=== PATIENT | male | born 1970 | race Caucasian/White ===

== ENCOUNTER 2017-04-13 16:40 | Emergency (ER) | payer BC, SELFPAY ==
[2017-04-13] VITALS (10 sets, daily range): BP systolic 121–160; BP diastolic 75–110; PULSE 85–149; RESP 15–28; TEMP 36.1–36.3; O2SAT 94–99; BMI 43.9
--- NOTE | 2017-04-13 16:55 | EKG12_ITS ---
Test Reason : PALPS Blood Pressure : / mmHG Vent. Rate : 166 BPM Atrial Rate : 174 BPM P-R Int : 000 ms QRS Dur : 086 ms QT Int : 262 ms P-R-T Axes : 000 015 014 degrees QTc Int : 435 ms Atrial fibrillation Abnormal ECG Confirmed by AIDEE ESPINOSA ([id number]), acquisition editor DEBRA ARGUELLO ([id number] on 04/18/2017 1:42:15 PM Referred By: VIPUL Confirmed By:AIDEE ESPINOSA
--- NOTE | 2017-04-13 17:00 | RAD_ITS ---
STUDY: X-RAY CHEST REASON FOR EXAM: Male, 47 years old. Chest pain. TECHNIQUE: Single AP portable upright view of the chest. COMPARISON: Prior comparison studies are not available for review at this time. FINDINGS: The lungs are clear and expanded. There is no demonstrated pleural abnormality. Normal size heart. Normal mediastinum and andrew. Normal visualized pulmonary arteries. Normal visualized aortic arch and descending thoracic aorta. There are multilevel degenerative changes of the visualized lower thoracic spine. Normal visualized ribs, clavicles, and shoulders. There is no demonstrated abnormality of the visualized soft tissue structures of the upper abdomen. RAD/Chest 1 View (Portable) IMPRESSION: No acute cardiopulmonary disease. Electronically Signed: Jake Rocha MD at 17:14 EST , Service support ,
--- NOTE | 2017-04-13 17:08 | ED.DCSUM_ITS ---
- ER Visit Summary Date of Service: 04/13/17 Chief Complaint: Shortness of breath History of Present Illness: The patient is a [address] Fraga. He reports that 2 days ago he had the onset of shortness of breath while changing a tire. Reports that it comes and goes. It is much worse with exertion. He denies any chest pain or palpitations. He went to his primary care physician and in the office was found to be in atrial fibrillation with RVR. He denies having had this previously. He is on Coumadin for a PE that was diagnosed in 2010. His review of systems is otherwise negative. Physical Examination: Vitals: Stable. Afebrile. General: Well-nourished and well-developed. Head: Normocephalic atraumatic. Neck: Supple, no lymphadenopathy. No JVD. Nontender. Cardiovascular: Tachycardic irregular rhythm. No murmurs. Respiratory: No respiratory distress. Clear to auscultation bilaterally. Abdominal: Soft, nontender, nondistended, normal bowel sounds. No guarding, rebound, or peritoneal signs. Back: Nontender. Extremities: Nontender, no edema. Skin: Normal color, no rash. Neurologic: Alert and oriented ?3. Cranial nerves II through XII are intact. Normal strength and sensation. Psych: Normal affect. Test Results: EKG is atrial fibrillation at [address] changes. There is no old EKG for comparison. CBC is remarkable for a white count of 12.7. Chem-7 is marked for glucose of 216. INR is 2.0. TSH is 2.87. Troponin is less than 0.02. Chest x-ray shows no acute disease and a poor inspiration. Emergency Department Course and Treatment: Patient had an IV placed. He was given Cardizem IV and aspirin p.o. his heart rate came down to the 90s to low 100s. I reviewed his INR since December 222016 and they have all been therapeutic. I had a prolonged discussion with him about cardioversion. He would like this performed. He was given etomidate IV and synchronized cardioversion was attempted at 200, 300, and 360 J without success. He was then given another 20 mg of Cardizem IV and 120 mg of Cardizem CD p.o. Treatment Plan: Patient was discussed with Dr. Ortiz. He would like to go home to go to his [id number] tomorrow. It is felt that this is a reasonable course of action. He has been anticoagulated for quite some time. He is instructed to continue his Coumadin. He will be placed on Cardizem CD 120 mg a day. He will have an outpatient stress test and echocardiogram. He will then be seen for potential chemical cardioversion. He is instructed to return to the emergency department for any worsening symptoms or concerns. Disposition: To home in improved and stable condition. Impression: 1. Atrial fibrillation with RVR, new onset. 2. Procedural sedation. 3. Cardioversion, unsuccessful. This note was generated with [employer] software. It may contain incorrect words, spelling, and punctuation that were not noted in review of the chart prior to signing ED Disposition - Plan for ED Patient: Disposition: Home or Assisted Living Chief Complaint: Palpitations Instructions: ED Afib Prescriptions: Diltiazem CD [Cardizem CD] 120 mg PO DAILY #30 capsule Referrals: Jones Ortiz MD [STAFF PHYSICIAN] - As soon as possible Additional Instructions: The plan is for an ultrasound of your heart and stress test. Following this there are medications that can be used to get your heart back into a normal rhythm if you are still in atrial fibrillation.
[2017-04-13 17:10] LABS: Absolute Lymphocyte Count 3.74 X10^3/ul (0.83-4.51); Absolute Neutrophil Count 7.9 X10^3/uL (2.0-7.7); Basophil# 0.05 X10^3/uL; Basophil% 0.4 % (0-1); Eosinophil# 0.33 X10^3/uL; Eosinophils% 2.6 % (0-5); Hemoglobin 15.7 g/dl (13.0-16.5); Lymphocyte # 3.74 X10^3/ul (4.0); Lymphocyte % 29.5 % (19-41); Mean Corp Hgb Conc 32.7 g/gl (32-36); Mean Corpuscular Hgb 26.7 pg (27.0-32.0); Mean Corpuscular Volume 81.5 fL (80-94); Mean Platelet Vol. 10.4 fl (6.2-12.0); Monocyte# 0.65 X10^3/uL; Monocyte% 5.1 % (0-10); Neutrophil # 7.85 X10^3/uL (2.7-7.7); Neutrophil % 62.1 % (47-70); Platelet Count 335 K/mm3 (150-450); RBC Distribution Width CV 14.3 % (11.6-14.6); RBC Distribution Width SD 42.3 fl (35.1-43.9); Red Blood Count 5.89 M/mm3 (4.6-6.2); White Blood Count 12.7 K/mm3 (4.4-11.0)
[2017-04-13 17:12] LABS: POSITIVE COUNT NO; POSITIVE DIFFERENTIAL NO; POSITIVE MORPHOLOGY NO
[2017-04-13] MEDS: Aspirin 81 MG TAB.CHEW 324 MG PO (17:14)
[2017-04-13] MEDS: dilTIAZem 25 MG/5 ML Vial 20 MG IV BOLUS ×2 (17:14→18:29)
[2017-04-13] MEDS: 0.9% Normal Saline 1,000 ML 150 ML IV (17:14)
[2017-04-13 17:19] LABS: Prothrombin Time (Protime)PT. 21.9 SECONDS (11.7-14.9)
[2017-04-13 17:35] LABS: Anion Gap 7 (5-15); BUN 15 mg/dL (7-18); BUN/Creat Ratio 13.3 RATIO (10-20); Calcium,Total 8.8 mg/dL (8.5-10.1); Chloride 104 mmol/L (98-107); Creatinine, Serum 1.13 mg/dL (0.70-1.30); EST Glomerular Filtration Rate 74 mL/min (>60); Est Glom Filt Rate - Afr Amer 89 mL/min (>60); Estimated Creatinine Clearance 79.95 ml/min; Glucose 216 mg/dL (74-106); Sodium Level 140 mmol/L (136-145); Thyroid Stim Hormone (TSH) 2.87 uIU/mL (0.358-3.74)
[2017-04-13] MEDS: Etomidate 20 MG/10 ML Vial 8 MG IV ×2 (18:23→18:28)
[2017-04-13] MEDS: dilTIAZem CD 120 MG Capsule PO (18:50)
--- NOTE | 2017-04-13 19:00 | ED.RN ---
please see Vandana Gonzalez charting for con. sedation.
== END 2017-04-13 20:39 | disposition home or self-care (01) ==
LOC: ED 18:51
PROVIDERS: Emergency Provider Emergency Medicine; Family Provider Family Medicine; PCP Family Medicine
DX: I48.91 Unspecified atrial fibrillation (principal); E78.00 Pure hypercholesterolemia, unspecified; E11.9 Type 2 diabetes mellitus without complications; Z86.718 Personal history of other venous thrombosis and embolism
CPT/HCPCS: 71045; 80048; 84443; 84484; 85025; 85610; 92960; 93005; 96361; 96374; 99152; 99285; J7030; A4216

== ENCOUNTER → 2017-04-21 13:10 | Outpatient (CLI) | payer BC, SELFPAY ==
[2017-04-21 14:47] LABS: AST(SGOT) 30 U/L (15-37); Alanine Aminotransfer ALT/SGPT 45 U/L (16-61); Albumin, Serum 3.5 g/dL (3.2-5.0); Alkaline Phosphatase 71 U/L (45-117); Bilirubin, Direct 0.14 mg/dL (0.00-0.30); Cholesterol 104 mg/dL (200); Globulin 3.3 g/dL (2.2-4.2); High Density Lipoprotein 27 mg/dL; Protein, Total 6.8 g/dL (6.4-8.2); Triglycerides 91 mg/dL; Very Low Density Lipoprotein 18 mg/dL (5-40)
== END ==
PROVIDERS: Family Provider Family Medicine; PCP Family Medicine; Visit Provider Internal Medicine Cardiovascular Disease
DX: E66.01 Morbid (severe) obesity due to excess calories (principal); E11.9 Type 2 diabetes mellitus without complications; E78.5 Hyperlipidemia, unspecified; Z79.01 Long term (current) use of anticoagulants; R94.31 Abnormal electrocardiogram [ECG] [EKG]; R06.00 Dyspnea, unspecified; I45.10 Unspecified right bundle-branch block
CPT/HCPCS: 36415; 80061; 80076

== ENCOUNTER → 2017-05-04 13:38 | Outpatient (CLI) | payer BC, SELFPAY ==
--- NOTE | 2017-05-04 13:40 | ECHOD_ITS ---
Version 2 Reason For Study: AFIB Procedure This was a 2D Doppler, Color Flow transthoracic echocardiogram. Exam performed in department. Left Ventricle Normal size and thickness. The estimated ejection fraction is 65 %. Normal diastology for age. No regional wall motion abnormalities noted. Right Ventricle Normal size and thickness. Normal systolic function. Atria Normal left atrium. Normal right atrium. Normal atrial septum. Mitral Valve The mitral valve is structurally normal. No prolapse or stenosis seen. Tricuspid Valve Normal tricuspid valve. Unable to estimate RV systolic pressure, pulmonary artery pressure probably normal. Trivial tricuspid valve insufficiency. Aortic Valve Mild focal aortic valve thickening. Small calcified mass located on medial surface of LVOT of aortic valve. No evidence of hemodynamic impact or aortic insufficiency. Cannot exclude fibroelastoma or bicuspid aortic valve. Recommend KARTIK for further evaluation. Pulmonic Valve Normal pulmonic valve. Great Vessels Normal aortic root. Pericardium/Pleural No pericardial effusion. Medication 22 gauge I.V. with prn adaptor inserted into right arm. Diluted definity 4ml given slow IV push to enhance endocardial definition. MMode/2D Measurements & Calculations LVIDd: 4.1 cm IVSd: 1.0 cm Ao root diam: 3.1 cm LVIDs: 2.9 cm LVPWd: 0.98 cm LA dimension: 4.5 cm RVDd: 3.4 cm FS: 28.0 % LAV(MOD-bp): 32.6 ml EDV(MOD-sp4): 85.5 ml EDV(MOD-sp2): 80.6 ml LAV(MOD-bp) Indexed: 13.5 ml/m2 ESV(MOD-sp4): 29.7 ml EF(MOD-sp2): 60.3 % LAV(MOD-sp2): 33.7 ml EF(MOD-sp4): 65.3 % LAV(MOD-sp4): 28.5 ml SV(MOD-sp4): 55.8 ml SV(MOD-sp2): 48.6 ml LA A4 area: 12.7 cm2 RA A4 area: 9.8 cm2 Doppler Measurements & Calculations MV E max sandra: 79.7 cm/sec Ao V2 max: 169.3 cm/sec LV V1 max: 111.8 cm/sec MV A max sandra: 59.9 cm/sec Ao max P.5 mmHg LV V1 max P.0 mmHg MV E/A: 1.3 PA V2 max: 135.6 cm/sec Interpretation Summary The estimated ejection fraction is 65 %. Normal diastology for age. Trivial tricuspid valve insufficiency. Unable to estimate RV systolic pressure, pulmonary artery pressure probably normal. Small calcified mass located on medial surface of LVOT of aortic valve. No evidence of hemodynamic impact or aortic insufficiency. Cannot exclude fibroelastoma or bicuspid aortic valve. Recommend KARTIK for further evaluation. Compared to echo report dated 07/12/2010, LV function has remained the same. I reviewed actual echo films from 07/12/2010, and no aortic valve density noted at that time. Ordering Physician: Jones Ortiz Referring Physician: KENNETH GELLER Performed By: Bernie aCicedo RDCS, RVT
== END ==
PROVIDERS: Family Provider Family Medicine; PCP Family Medicine; Visit Provider Internal Medicine Cardiovascular Disease
DX: E66.01 Morbid (severe) obesity due to excess calories (principal); E11.9 Type 2 diabetes mellitus without complications; E78.5 Hyperlipidemia, unspecified; Z79.01 Long term (current) use of anticoagulants; I26.99 Other pulmonary embolism without acute cor pulmonale; I48.91 Unspecified atrial fibrillation; Z98.890 Other specified postprocedural states; I45.10 Unspecified right bundle-branch block; R06.00 Dyspnea, unspecified; R94.31 Abnormal electrocardiogram [ECG] [EKG]; Z68.41 Body mass index [BMI] 40.0-44.9, adult
CPT/HCPCS: 93306; 95806; Q9957; A4216; C8929

== ENCOUNTER → 2017-05-10 13:30 | Outpatient (CLI) | payer BC, SELFPAY ==
--- NOTE | 2017-05-10 13:31 | STE_ITS ---
Reason For Study: AFIB/FLUTTER Stress Results Protocol: Gene Protocol Maximum Predicted HR: 172 bpm Target HR: 146 bpm% Max imum Predicted HR: 120 % DurationHeart Rate Stage (mm:ss) (bpm) BPCom ment BASELINE 131 124/8 84CC TOTAL DEFIINITY FOR TEST STAGE 1 3:00 17 6 166/84 STAGE 2 3:00 20 3 202/90 STAGE 3 0:16 20 6 / RECOVERY 166 158/8 0 Stress Duration: 6:16 mm:ss Maximum Stress HR: 206 bpm Baseline Echocardiogram Findings The estimated ejection fraction is 65 %. Stress Echo Wall motion Data Resting WMIntermediate WMStress WM Resting Wall Motion Wall Motion Stress No regional wall motion No regional wall motion abnormalities noted. abnormalities noted. EKG Data Atrial fibrillation with rapid ventricular response. The patient exercised according to the regular Gene protocol for a total duration of 6:16. The maximum heart rate attained was 230 beats per minute. This was 133% of maximum predicted heart rate. The patient exercised into stage 3 of the Gene protocol. During stress, there were no ST or T wave changes noted to suggest ischemia. No clinical angina was noted. Interpretation Summary The estimated ejection fraction is 65 %. Atrial fibrillation with rapid ventricular response. Normal, adequate, treadmill echocardiogram. Negative for ischemia by EKG and echocardiographic criteria. No anginal symptoms noted. Patient had baseline atrial fibrillation with rapid ventricular response which remained the same during exercise. Hypertensive blood pressure response to exercise. Test terminated due to fatigue and dyspnea. Final LVEF of 65%. Decreased sensitivity due to poor echo windows requiring Definity enhancing agent. No complications. Ordering Physician: Jones Ortiz MD Referring Physician: Jones Ortiz MD Performed By: Bernie Caicedo, JAE, RVT
== END ==
PROVIDERS: Family Provider Family Medicine; PCP Family Medicine; Visit Provider Internal Medicine Cardiovascular Disease
DX: E66.01 Morbid (severe) obesity due to excess calories (principal); E11.9 Type 2 diabetes mellitus without complications; Z79.01 Long term (current) use of anticoagulants; E78.5 Hyperlipidemia, unspecified; R94.31 Abnormal electrocardiogram [ECG] [EKG]; R06.00 Dyspnea, unspecified; I45.10 Unspecified right bundle-branch block; Z98.890 Other specified postprocedural states; I26.99 Other pulmonary embolism without acute cor pulmonale; I48.91 Unspecified atrial fibrillation
CPT/HCPCS: 93017; 93306; 93350; Q9957; A4216; C8928; C8929

== ENCOUNTER → 2017-06-16 09:59 | Outpatient (CLI) | payer BC, SELFPAY ==
--- NOTE | 2017-06-16 10:01 | ECHOTEE_ITS ---
Reason For Study: ABN ECHO Medication KARTIK probe passed without difficulty. No complications were noted. [id number] gargled and swallowed. Cetacaine Topical [place] given X3 orally. Versed 2 mg given slow IVP. Fentanyl 25 mcg given slow IVP. Performed a rapid injection of agitated mix of 9 cc saline and 1cc air to assess for atrial septal defect. Left Ventricle Normal size and thickness. The estimated ejection fraction is 65 %. No regional wall motion abnormalities noted. Right Ventricle Normal size and thickness. The right ventricular wall motion is normal. Atria Normal atrial septum. Bubble contrast study negative for right to left interatrial shunt. Normal left atrium. No thrombus is detected in the left atrial appendage. Normal right atrium. Mitral Valve The mitral valve is structurally normal. No prolapse or stenosis seen. Trivial mitral valve insufficiency. Tricuspid Valve Normal tricuspid valve. Unable to estimate RV systolic pressure/pulmonary artery pressure due to technically difficult study. Aortic Valve Normal aortic valve. Trisinus/trileaflet aortic valve. Pulmonic Valve Normal pulmonic valve. Vessels Normal aortic root. Normal arch. The pulmonary artery is normal size. Pulmonary venous flow normal. Interpretation Summary The estimated ejection fraction is 65 %. Bubble contrast study negative for right to left interatrial shunt. Trivial mitral valve insufficiency. Unable to estimate RV systolic pressure/pulmonary artery pressure due to technically difficult study. No thrombus is detected in the left atrial appendage. No evidence of any massess or thickening of any leaflets on aortic valve. Ordering Physician: Jones Ortiz Referring Physician: KENNETH GELLER Performed By: Bernie Caicedo RDCS, RVT
== END ==
PROVIDERS: Family Provider Family Medicine; PCP Family Medicine; Visit Provider Internal Medicine Cardiovascular Disease
DX: I35.9 Nonrheumatic aortic valve disorder, unspecified (principal)
CPT/HCPCS: 93312; 93320; 93325; J7030; A4216

== ENCOUNTER → 2017-07-21 21:54 | Outpatient (CLI) | payer BC, SELFPAY | PROVIDERS: Family Provider Family Medicine; PCP Family Medicine; Visit Provider Nurse Practitioner Acute Care | DX: G47.33 Obstructive sleep apnea (adult) (pediatric) (principal) | CPT/HCPCS: 95811 ==

== ENCOUNTER → 2018-06-22 13:55 | Outpatient (CLI) | payer BC, SELFPAY ==
[2018-05-14 15:18] VITALS: BMI 44.1
== END ==
PROVIDERS: Family Provider Family Medicine; PCP Family Medicine; Referring Provider Family Medicine; Visit Provider Family Medicine
DX: I82.4Z9 Acute embolism and thrombosis of unspecified deep veins of unspecified distal lower extremity (principal); Z86.711 Personal history of pulmonary embolism
CPT/HCPCS: 85610

== ENCOUNTER → 2018-07-27 16:06 | Outpatient (CLI) | payer BC, SELFPAY ==
[2018-05-14 15:18] VITALS: BMI 44.1
[2018-07-27 17:02] LABS: International Normalized Ratio 2.4; Prothrombin Time (Protime)PT. 25.8 SECONDS (11.7-14.9)
== END ==
PROVIDERS: Family Provider Family Medicine; PCP Family Medicine; Referring Provider Family Medicine; Visit Provider Family Medicine
DX: I82.501 Chronic embolism and thrombosis of unspecified deep veins of right lower extremity (principal)
CPT/HCPCS: 85610

== ENCOUNTER → 2018-12-20 16:55 | Outpatient (CLI) | payer BC, SELFPAY ==
[2018-12-05 06:56] VITALS: BMI 40.8
[2018-12-20 17:23] LABS: International Normalized Ratio 2.6; Prothrombin Time (Protime)PT. 27.8 SECONDS (11.7-14.9)
== END ==
PROVIDERS: Family Provider Family Medicine; PCP Family Medicine; Visit Provider Family Medicine
DX: I26.99 Other pulmonary embolism without acute cor pulmonale (principal); Z86.718 Personal history of other venous thrombosis and embolism
CPT/HCPCS: 85610

== ENCOUNTER → 2019-01-23 14:56 | Outpatient (CLI) | payer BC, SELFPAY ==
[2019-01-04 13:48] VITALS: BMI 41.2
--- NOTE | 2019-01-23 14:57 | ECHOD_ITS ---
Reason For Study: PHTN Procedure This was a 2D Doppler, Color Flow transthoracic echocardiogram. The study was technically difficult. Exam performed in department. Left Ventricle Normal size and thickness. The estimated ejection fraction is 65 %. Stage 1 diastolic dysfunction. No regional wall motion abnormalities noted. Right Ventricle Mildly dilated right ventricle. A moderator band is seen in the right ventricle. Normal systolic function. Atria Normal left atrium. Normal right atrium. Normal atrial septum. Mitral Valve The mitral valve is structurally normal. No prolapse or stenosis seen. Tricuspid Valve Normal tricuspid valve. Unable to estimate RV systolic pressure due to insufficient tricuspid regurgitant envelope. Aortic Valve Normal aortic valve. Trisinus/trileaflet aortic valve. Pulmonic Valve Normal pulmonic valve. Great Vessels Normal aortic root. Normal arch. Normal inferior vena cava. Inferior vena cava collapse with sniff. Pericardium/Pleural No pericardial effusion. MMode/2D Measurements & Calculations LVIDd: 4.7 cm IVSd: 1.2 cm Ao root diam: 2.9 cm LVIDs: 2.9 cm LVPWd: 1.2 cm RVDd: 3.9 cm FS: 37.7 % LAV(MOD-bp): 59.1 ml LA A4 area: 19.3 cm2 LA dimension(2D): 3.4 cm LAV(MOD-bp) Indexed: 24.8 ml/m2 LAV(MOD-sp2): 55.0 ml LAV(MOD-sp4): 60.1 ml RA A4 area: 13.7 cm2 Time Measurements MV dec time: 0.17 sec Doppler Measurements & Calculations MV E max clarke: 77.4 cm/sec Lat Peak E' Clarke: 11.1 cm/sec Med Peak E' Clarke: 10.4 cm/sec MV A max clarke: 88.6 cm/sec E/E' lat: 7.0 E/E' med: 7.4 MV E/A: 0.87 Ao V2 max: 156.9 cm/sec LV V1 max: 103.9 cm/sec PA V2 max: 111.5 cm/sec Ao max P.8 mmHg LV V1 max P.3 mmHg Interpretation Summary The estimated ejection fraction is 65 %. Stage 1 diastolic dysfunction. Mildly dilated right ventricle. Unable to estimate RV systolic pressure due to insufficient tricuspid regurgitant envelope. Compared to KARTIK report dated 06/16/2017, no appreciable changes noted. Ordering Physician: Jones Ortiz Referring Physician: Kolby Fraga Performed By: Kenisha Woods RDCS, RVT
== END ==
PROVIDERS: Family Provider Family Medicine; PCP Family Medicine; Referring Provider Internal Medicine Cardiovascular Disease; Visit Provider Internal Medicine Cardiovascular Disease
DX: I48.0 Paroxysmal atrial fibrillation (principal); G47.33 Obstructive sleep apnea (adult) (pediatric); R06.00 Dyspnea, unspecified
CPT/HCPCS: 93306

== ENCOUNTER → 2019-02-01 12:52 | Outpatient (CLI) | payer BC, SELFPAY ==
[2019-01-04 13:48] VITALS: BMI 41.2
--- NOTE | 2019-02-01 12:54 | STEWCON_ITS ---
Reason For Study: Atrial Fibrillation Stress Results Protocol: Gene Protocol WITH DEFINITY Maximum Predicted HR: 171 bpm Target HR: 145 bpm % Maximum Predicted HR: 89 % DurationHeart Rate Stage (mm:ss) (bpm) BP Comment Baseline 72 110/86No Chest Pain 4 ML Diluted Definity Given Gene Protocol Stage I 3:00 102 120/68No Chest Pain Gene Protocol Stage II 3:00 122 140/76No Chest Pain; Mild Dyspnea Gene Protocol Stage III 2:00 153 174/80No Chest Pain; Moderate Dyspnea Recovery 104 124/70No Chest Pain Stress Duration: 8:00 mm:ss Maximum Stress HR: 153 bpm METS: 10 Baseline Echocardiogram Findings The estimated ejection fraction is 65 %. Stress Echo Wall motion Data Resting WM Intermediate WM Stress WM Resting Wall Motion Wall Motion Stress No regional wall motion No regional wall motion abnormalities noted. abnormalities noted. EKG Data The baseline ECG displays normal sinus rhythm. The patient exercised according to the regular Gene protocol for a total duration of 8:00. The maximum heart rate attained was 162 beats per minute. This was 94% of maximum predicted heart rate. The patient exercised into stage 3 of the Gene protocol. During stress, there were no ST or T wave changes noted to suggest ischemia. No clinical angina was noted. Interpretation Summary The estimated ejection fraction is 65 %. Normal, adequate, treadmill echocardiogram. Negative for ischemia by EKG and echocardiographic criteria. No anginal symptoms noted. Rare PVC noted. Appropriate blood pressure response to exercise. Average exercise capacity for age. Test terminated due to dyspnea. Final LVEF is 75%. Decreased sensitivity due to poor echo windows requiring Definity agent. No complications. The study was technically difficult. Contrast injection was performed. Ordering Physician: Jones Ortiz Referring Physician: Kolby Fraga Performed By: Miya Maldonado, TRISTIANCS, RVT
[2019-02-01 13:53] LABS: AST(SGOT) 25 U/L (15-37); Alanine Aminotransfer ALT/SGPT 38 U/L (16-61); Albumin, Serum 3.5 g/dL (3.2-5.0); Alkaline Phosphatase 92 U/L (45-117); Bilirubin, Direct 0.17 mg/dL (0.00-0.30); Cholesterol 112 mg/dL (200); Globulin 3.7 g/dL (2.2-4.2); High Density Lipoprotein 33 mg/dL; Protein, Total 7.2 g/dL (6.4-8.2); Triglycerides 74 mg/dL; Very Low Density Lipoprotein 15 mg/dL (5-40)
== END ==
PROVIDERS: Family Provider Family Medicine; PCP Family Medicine; Referring Provider Internal Medicine Cardiovascular Disease; Visit Provider Internal Medicine Cardiovascular Disease
DX: E78.00 Pure hypercholesterolemia, unspecified (principal); I48.0 Paroxysmal atrial fibrillation; R06.00 Dyspnea, unspecified; I48.91 Unspecified atrial fibrillation
CPT/HCPCS: 36415; 80061; 80076; 93017; 93350; Q9957; A4216; C8928

== ENCOUNTER → 2019-02-15 16:03 | Outpatient (CLI) | payer BC, SELFPAY ==
[2019-01-04 13:48] VITALS: BMI 41.2
[2019-02-15 16:30] LABS: International Normalized Ratio 2.5
== END ==
PROVIDERS: Family Provider Family Medicine; PCP Family Medicine; Referring Provider Family Medicine; Visit Provider Family Medicine
DX: Z86.711 Personal history of pulmonary embolism (principal); Z86.718 Personal history of other venous thrombosis and embolism
CPT/HCPCS: 85610

== ENCOUNTER → 2019-08-16 13:58 | Outpatient (CLI) | payer OTHER, SELFPAY ==
[2019-01-04 13:48] VITALS: BMI 41.2
[2019-08-16 14:17] LABS: International Normalized Ratio 2.3; Prothrombin Time (Protime)PT. 25.2 SECONDS (11.7-14.9)
== END ==
PROVIDERS: PCP Family Medicine; Referring Provider Family Medicine; Visit Provider Family Medicine
DX: I26.99 Other pulmonary embolism without acute cor pulmonale (principal); Z86.718 Personal history of other venous thrombosis and embolism
CPT/HCPCS: 85610

== ENCOUNTER → 2020-12-10 | Outpatient (CLI) | payer OTHER, SELFPAY ==
[2020-12-10 16:10] LABS: International Normalized Ratio 2.2; Prothrombin Time (Protime)PT. 23.3 SECONDS (11.7-14.9)
== END | disposition home or self-care (01) ==
LOC: LABSPEC 15:38
PROVIDERS: PCP Family Medicine; Referring Provider Family Medicine; Visit Provider Family Medicine
DX: I48.0 Paroxysmal atrial fibrillation (principal)
CPT/HCPCS: 85610

== ENCOUNTER → 2021-01-21 10:09 | Outpatient (CLI) | payer OTHER, SELFPAY ==
[2021-01-21 10:42] LABS: Prothrombin Time (Protime)PT. 21.5 SECONDS (11.7-14.9)
== END ==
PROVIDERS: PCP Family Medicine; Visit Provider Physician Assistant
DX: I48.0 Paroxysmal atrial fibrillation (principal)
CPT/HCPCS: 85610

== ENCOUNTER 2021-05-28 16:04 | Outpatient (CLI) | payer OTHER, SELFPAY | END 2021-05-28 23:59 | disposition home or self-care (01) | LOC: LABSPEC 16:06 | PROVIDERS: PCP Family Medicine; Visit Provider Family Medicine | DX: I48.0 Paroxysmal atrial fibrillation (principal) | CPT/HCPCS: 85610 ==

== ENCOUNTER → 2021-11-01 | Outpatient (CLI) | payer OTHER, SELFPAY ==
[2021-11-01 15:54] LABS: Prothrombin Time (Protime)PT. 22.3 SECONDS (11.7-14.9)
== END | disposition home or self-care (01) ==
LOC: LABSPEC 15:24
PROVIDERS: PCP Family Medicine; Visit Provider Family Medicine
DX: Z79.01 Long term (current) use of anticoagulants (principal)
CPT/HCPCS: 85610

== ENCOUNTER 2021-12-28 16:59 | Inpatient (IN) | payer OTHER, SELFPAY ==
--- NOTE | 2021-12-17 22:34 | EKG12_ITS ---
Test Reason : CP ADMIT Blood Pressure : / mmHG Vent. Rate : 098 BPM Atrial Rate : 098 BPM P-R Int : 180 ms QRS Dur : 094 ms QT Int : 342 ms P-R-T Axes : 040 -01 041 degrees QTc Int : 436 ms Sinus rhythm with Premature atrial complexes Cannot rule out Anterior infarct , age undetermined Abnormal ECG When compared with ECG of 28-DEC-2021 17:51, MANUAL COMPARISON REQUIRED, DATA IS UNCONFIRMED Confirmed by DOROTA HUNT, BAKARI ([id number]), newspaper editor managing LESLEE GLASGOW ([id number]) on 12/29/2021 1:23:58 PM Referred By: Confirmed By:BAKARI RAYA MD
[2021-12-28] VITALS (19 sets, daily range): BP systolic 120–161; BP diastolic 58–108; PULSE 86–162; RESP 17–25; TEMP 36.1–37; O2SAT 93–100; BMI 37.5; BMI 37.0
--- NOTE | 2021-12-28 17:18 | ED.VIS.CHEST ---
HPI History of Present Illness Chief Complaint: Chest Pain Informant: patient Onset/Context/Timing Onset: Days Activity at onset: gradual Timing: Continuous Quality: Positive for Burning and Sharp Location: Left Chest Worsened By: Exertion and - (Standing) Relieved By: - (Laying down) Associated Symptoms: Positive for Nausea, Diaphoresis, Dyspnea, Cough, Lightheadedness, Acid Reflux and Palpitations; Negative for Vomiting or Fever Narrative Narrative: Patient presents with chest pain that has been getting worse over the past few days. Patient states it came on gradually. Patient states it has been constant. Patient states he feels like his heart is racing. Patient describes his pain as sharp and burning. Patient states it is over the left chest. Patient states it is worse with standing and with exertion. Patient states it is better with laying down. Patient admits to nausea but denies any vomiting. Patient admits to some shortness of breath and diaphoresis. Patient also admits to some lightheadedness. Patient states he saw his primary care physician today who did an EKG in the office and noticed that there was a tachycardia and referred him to the emergency department. CVD Risk Factors: Positive for Hypertension, Diabetes and Family History 1' </=55; Negative for Hypercholesterolemia or Smoking PE Risk Factors: Positive for Prior DVT or PE; Negative for Recent Travel/Surgery, Recent Immobilization, Cancer or OCP + Smoking + >/=35 PFSH [facility] Medical History Blood clotting disorder Hyperlipidemia Incomplete right bundle branch block New onset atrial fibrillation (04/13/17) Obesity, morbid, BMI 40.0-49.9 Pulmonary embolism (2010) Right leg DVT (2010) Type 2 diabetes mellitus without complications Vitamin D deficiency Home Medications atorvastatin 20 mg tablet 20 mg PO QHS 04/13/17 [History Last Taken Unknown] cholecalciferol (vitamin D3) 50 mcg (2,000 unit) capsule 2,000 unit PO DAILY 04/13/17 [History Last Taken Unknown] insulin lispro 100 unit/mL subcutaneous pen 15 unit SQ TID 04/13/17 [History Last Taken Unknown] metformin 1,000 mg tablet 1,000 mg PO BIDCM 04/13/17 [History Last Taken Unknown] insulin glargine U-300 conc 300 unit/mL (3 mL) subcutaneous pen (Toujeo Max U-300 SoloStar) 55 unit subcut QHS 05/14/18 [History Last Taken Unknown] empagliflozin 10 mg tablet (Jardiance) 10 mg PO DAILY 01/04/19 [History Last Taken Unknown] semaglutide 0.25 mg or 0.5 mg (2 mg/1.5 mL) subcutaneous pen injector (Ozempic) 0.5 mg subcut QWEEK 01/04/19 [History Last Taken Unknown] warfarin 4 mg tablet 4 mg PO DAILY 08/16/19 [History Last Taken Unknown] warfarin 5 mg tablet 5 mg PO DAILY 08/16/19 [History Last Taken Unknown] flecainide 100 mg tablet 100 mg PO Q12H #180 tabs 03/17/21 [Rx Last Taken Unknown] diltiazem HCl 240 mg capsule,extended release 24 hr 240 mg PO QDAY #90 caps 03/25/21 [Rx Last Taken Unknown] lisinopril 10 mg tablet 10 mg PO DAILY #90 tabs 08/09/21 [Rx Last Taken Unknown] prednisone 20 mg tablet 20 mg PO DAILY 12/28/21 [History Last Taken Unknown] Allergy/AdvReac Type Severity Reaction Status Date / Time No Known Allergies Allergy Verified 12/28/21 22:43 Family History Father Hypertension Hyperlipidemia Mother blood clots Uncle CAD (coronary artery disease) MO Uncle CAD (coronary artery disease) [place] Surgical History History of appendectomy History of cardioversion (04/13/17) History of tooth extraction Social History Smoking Status: Never smoker second hand exposure: No alcohol intake: never substance use type: does not use caffeine: Yes Type: coffee Number of servings: 2 what type of physical activity do you participate in: none ROS ROS ED Constitutional Constitutional ED: Denies chills or fever(s) Eyes Eyes: Denies blurry vision or change in vision ENT ENT ED: Denies rhinorrhea or sore throat Cardiovascular Cardiovascular: Reports chest pain and palpitations Respiratory/Chest Respiratory/Chest: Reports cough and dyspnea Gastrointestinal Gastrointestinal: Reports nausea; Denies abdominal pain or vomiting Genitourinary Genitourinary ED: Reports urinary frequency; Denies dysuria or hematuria Musculoskeletal Musculoskeletal: Reports back pain and neck pain Integumentary Denies abscess or rash Neurologic Neurologic: Denies headache(s) or weakness Allergic/Immunologic Allergic/Immunologic ED: Denies mouth swelling or urticaria EXAM Physical Exam Const Vital Signs: 12/28/21 17:00 12/28/21 17:41 12/28/21 17:44 Temperature 96.9 F L Temperature Source Temporal Pulse Rate 146 H 117 H 101 H Respiratory Rate 22 H 20 H Blood Pressure 143/91 H 161/93 H Blood Pressure Mean 108 115 Pulse Ox 97 94 Oxygen Delivery Method Room Air Room Air 12/28/21 17:52 12/28/21 18:13 12/28/21 18:47 Temperature Temperature Source Pulse Rate 107 H 97 108 H Respiratory Rate Blood Pressure Blood Pressure Mean Pulse Ox Oxygen Delivery Method 12/28/21 18:58 12/28/21 19:00 12/28/21 20:22 Temperature Temperature Source Pulse Rate 95 124 H 104 H Respiratory Rate 20 H 17 Blood Pressure 146/100 H 134/75 H Blood Pressure Mean 115 94 Pulse Ox 95 93 Oxygen Delivery Method Room Air Room Air Positive well nourished, well developed and obese General Appearance ED: well developed Nutritional Appearance: obese HEENT normocephalic and atraumatic Eyes PERRL and EOMs intact bilaterally Neck supple and no JVD Chest Wall palpation of chest normal Resp normal respiratory effort and clear to auscultation bilaterally Effort and Inspection: Negative for respiratory distress Cardio regular rhythm and no murmurs Rate: tachycardic GI normal to inspection, nondistended, normoactive bowel sounds, soft to palpation, non-tender and non-distended Extremity normal to inspection General Extremety ED: Negative for edema or tenderness General Extremity: Negative for edema Neuro oriented x3, CN's II-XII intact bilaterally and no sensory deficits noted Sensorium / Orientation: awake and alert Motor Exam: strength 5/5 throughout Psych mental status grossly normal Heart Score History: Moderately Suspicious ECG: Nonspecific Repolarization Age: >45 - <65 years Risk Factors: >/= 3 Risk Factors or History of CAD Score: 5 MDM MDM MDM Narrative Medical decision making narrative: EKG was obtained. On my interpretation, it shows sinus tachycardia versus atrial flutter with 2-1 block with a rate of 151. QRS interval was within normal limits. The QTc interval was 485 ms. There is borderline left axis deviation at -25. There are nonspecific ST-T wave changes noted. Patient was given a dose of Cardizem here. CBC shows a leukocytosis of 18.8. Hemoglobin was 19.5 and hematocrit was 57.9. Platelets were 491. Pro time was 30.3 with an INR of 2.9. PTT was 40.2. D-dimer was less than 0.27. Comprehensive metabolic profile shows a BUN of 23 and creatinine of 1.36. These were increased from previous results. High-sensitivity troponin was normal. Portable 1 view chest x-ray was obtained. On my interpretation, lung sy are clear. There is normal cardiac silhouette. Bony thorax shows some degenerative changes. There is no acute process noted. Radiologist also interpreted the x-ray and agrees. Repeat EKG was obtained. On my interpretation, it shows atrial fibrillation with a rate of 115 QRS interval was normal. QTc interval was normal. [place] was normal. There are no acute ST or T wave changes. Case was discussed with the hospitalist. She will admit the patient to PCU. Patient understood and was agreeable with the plan. All questions were answered. Lab Data Attestation: I reviewed the patient's lab results. Labs: Laboratory Results - last 24 hr 12/28/21 12/28/21 12/28/21 17:10 17:10 17:10 WBC 18.8 H RBC 7.24 H Hgb 19.5 H* Hct 57.9 H MCV 80.0 MCH 26.9 L MCHC 33.7 RDW Std Deviation 43.1 RDW Coeff of Ken 17.1 H Plt Count 491 H MPV 10.0 Immature Gran % (Auto) 0.600 Neut % (Auto) 67.9 Lymph % (Auto) 21.4 [place] % (Auto) 8.6 Eos % (Auto) 0.8 Baso % (Auto) 0.7 Absolute Neuts (auto) 12.7 H Absolute Lymphs (auto) 4.02 Nucleated RBC % 0 Differential Comment SEE COMMENT Diff Path Review May foll Platelet Estimate SLT INC RBC Morphology N CHROM Anisocytosis RARE Microcytosis RARE ESR PT 30.3 H INR 2.9 APTT 40.4 H D-Dimer Quant (PE/DVT) < 0.27 L Sodium 134 L Potassium 4.2 Chloride 100 Carbon Dioxide 20.0 L Anion Gap 14 BUN 23 H Creatinine 1.36 H Estim Creat Clear Calc 63.54 Est GFR (MDRD) Af Amer 71 Est GFR (MDRD) Non-Af 58 L BUN/Creatinine Ratio 16.9 Glucose 197 H Calcium 11.8 H Magnesium Total Bilirubin 0.80 AST 23 ALT 55 Alkaline Phosphatase 82 Troponin I High Sens 9 C-React Prot Ext Range Total Protein 7.7 Albumin 4.2 Globulin 3.5 Albumin/Globulin Ratio 1.2 12/28/21 12/28/21 12/28/21 17:10 17:10 20:02 WBC RBC Hgb Hct MCV MCH MCHC RDW Std Deviation RDW Coeff of Ken Plt Count MPV Immature Gran % (Auto) Neut % (Auto) Lymph % (Auto) [place] % (Auto) Eos % (Auto) Baso % (Auto) Absolute Neuts (auto) Absolute Lymphs (auto) Nucleated RBC % Differential Comment Diff Path Review Platelet Estimate RBC Morphology Anisocytosis Microcytosis ESR 11 PT INR APTT D-Dimer Quant (PE/DVT) Sodium Potassium Chloride Carbon Dioxide Anion Gap BUN Creatinine Estim Creat Clear Calc Est GFR (MDRD) Af Amer Est GFR (MDRD) Non-Af BUN/Creatinine Ratio Glucose Calcium Magnesium 2.2 Total Bilirubin AST ALT Alkaline Phosphatase Troponin I High Sens 15 C-React Prot Ext Range 5.76 H Total Protein Albumin Globulin Albumin/Globulin Ratio Radiography Diagnostic Testing: Clinical Impression(s) from Imaging Studies Chest X-Ray 12/28/21 18:31 IMPRESSION: Degenerative changes, as described above. No demonstrated acute cardiopulmonary process. Electronically Signed: Farrukh Owusu MD at 19:03 EST , EKG Initial EKG: Attestation: I personally reviewed and interpreted this EKG as follows: Interpretation: Sinus Tachycardia (151) and Non-Specific ST Changes Prior EKG tracings: available for review Prior: Unchanged (09/09/2020) Follow-up EKG: Attestation: I personally reviewed and interpreted this EKG as follows: Interpretation: No Acute Injury Pattern and Atrial Fibrillation (115) Prior EKG tracings: available for review Prior: Unchanged Critical Care Time Critical Care Time: Yes Critical care time (excluding procedures): 30-74 minutes (31), Including time spent:, Discussing w/Patient &/or Family/Flatwork Catcher, Discussing w/Consultants, Arranging Admission or Transfer and Performing Direct Patient Care at Bedside Discharge Plan Dx/Rx/DC Orders Clinical Impression: Atrial fibrillation with rapid ventricular response, Obesity, Chest pain Disposition Disposition: Acute Care Hospital [facility] Discharge Date/Time: 12/28/21 22:19
--- NOTE | 2021-12-28 17:28 | EKG12_ITS ---
Test Reason : CP Blood Pressure : / mmHG Vent. Rate : 151 BPM Atrial Rate : 288 BPM P-R Int : 000 ms QRS Dur : 088 ms QT Int : 306 ms P-R-T Axes : 000 -25 034 degrees QTc Int : 485 ms Atrial flutter with variable A-V block Inferior infarct , age undetermined , cannot be excluded Anterior SD, age undetermined, cannot be excluded Abnormal ECG Confirmed by SKYLAR HUNT, DINORAH ([id number]), video editor LESLEE GLASGOW ([id number]) on 12/29/2021 11:22:19 AM Referred By: AUBREE Confirmed By:DINORAH CHENG MD
[2021-12-28] MEDS: dilTIAZem 25 MG/5 ML Vial IV BOLUS (17:40)
[2021-12-28] MEDS: Morphine 4 MG/ML Syringe IV (17:40)
[2021-12-28] MEDS: 0.9% Normal Saline 1,000 ML 1000 ML IV (17:40)
--- NOTE | 2021-12-28 17:51 | EKG12_ITS ---
Test Reason : CHANGWE Blood Pressure : / mmHG Vent. Rate : 115 BPM Atrial Rate : 000 BPM P-R Int : 000 ms QRS Dur : 086 ms QT Int : 286 ms P-R-T Axes : 000 017 036 degrees QTc Int : 395 ms Atrial fibrillation with rapid ventricular response Cannot rule out Anterior infarct , age undetermined Abnormal ECG Confirmed by SKYLAR HUNT, DINORAH ([id number]), science editor LESLEE GLASGOW ([id number]) on 12/29/2021 11:23:49 AM Referred By: Confirmed By:DINORAH CHENG MD
[2021-12-28 17:52] LABS: Absolute Lymphocyte Count 4.02 X10^3/uL (0.83-4.51); Absolute Neutrophil Count 12.7 X10^3/uL (2.0-7.7); Basophil# 0.14 X10^3/uL; Basophil% 0.7 % (0-1); Eosinophil# 0.15 X10^3/uL; Eosinophils% 0.8 % (0-5); Lymphocyte # 4.02 X10^3/ul (0.83-4.51); Lymphocyte % 21.4 % (19-41); Mean Corp Hgb Conc 33.7 g/dL (32-36); Mean Corpuscular Hgb 26.9 pg (27.0-32.0); Monocyte# 1.62 X10^3/uL; Monocyte% 8.6 % (0-10); NRBC Flagged by Analyzer 0 % (0-5); Neutrophil # 12.72 X10^3/uL (2.7-7.7); Neutrophil % 67.9 % (47-70); POSITIVE DIFFERENTIAL YES; Platelet Count 491 K/mm3 (150-450); RBC Distribution Width CV 17.1 % (11.6-14.6); RBC Distribution Width SD 43.1 fl (35.1-43.9); Red Blood Count 7.24 M/mm3 (4.6-6.2); White Blood Count 18.8 K/mm3 (4.4-11.0)
[2021-12-28 17:56] LABS: International Normalized Ratio 2.9; Prothrombin Time (Protime)PT. 30.3 SECONDS (11.7-14.9)
[2021-12-28 17:57] LABS: Partial Thromboplast Time 40.4 Seconds (24.1-36.2)
[2021-12-28 17:58] LABS: ALB/GLOB Ratio 1.2 RATIO (0.9-2.4); AST(SGOT) 23 U/L (15-37); Alanine Aminotransfer ALT/SGPT 55 U/L (16-61); Albumin, Serum 4.2 g/dL (3.2-5.0); Alkaline Phosphatase 82 U/L (45-117); Anion Gap 14 (5-15); BUN 23 mg/dL (7-18); BUN/Creat Ratio 16.9 RATIO (10-20); Calcium,Total 11.8 mg/dL (8.5-10.1); Chloride 100 mmol/L (98-107); Creatinine, Serum 1.36 mg/dL (0.70-1.30); EST Glomerular Filtration Rate 58 mL/min (>60); Est Glom Filt Rate - Afr Amer 71 mL/min (>60); Estimated Creatinine Clearance 63.54 ml/min; Globulin 3.5 g/dL (2.2-4.2); Glucose 197 mg/dL (74-106); Potassium 4.2 mmol/L (3.5-5.1); Protein, Total 7.7 g/dL (6.4-8.2); Sodium Level 134 mmol/L (136-145); Troponin-I HS 9 pg/mL (3.0-78.0)
[2021-12-28 18:10] LABS: D-Dimer Quantitative (DVT/PE) < 0.27 FEU/ug/m (0.27-0.49)
[2021-12-28 18:15] LABS: Hematocrit 57.9 % (40-54)
[2021-12-28 18:17] LABS: Differential Indicated SCAN CRITERIA MET; Hemoglobin 19.5 g/dL (13.0-16.5)
--- NOTE | 2021-12-28 18:31 | RAD_ITS ---
STUDY: X-RAY CHEST REASON FOR EXAM: Male, 51 years old. Chest pain TECHNIQUE: Single AP portable view of the chest. COMPARISON: None. FINDINGS: There are monitoring devices. The lungs are clear and expanded. There is no demonstrated pleural abnormality. Normal size heart. Normal mediastinum and andrew. Normal visualized pulmonary arteries. Normal visualized aortic arch and descending thoracic aorta. There are diffuse degenerative changes of the visualized thoracic spine. Normal visualized ribs, clavicles, and shoulders. There is no demonstrated abnormality of the visualized soft tissue structures of the upper abdomen. RAD/Chest 1 View (Portable) IMPRESSION: Degenerative changes, as described above. No demonstrated acute cardiopulmonary process. Electronically Signed: Farrukh Owusu MD at 19:03 EST ,
[2021-12-28 18:52] LABS: Platelet Estimate SLT INC (ADEQ)
[2021-12-28 18:53] LABS: Anisocytosis RARE; Microcytosis RARE; Red Cell Morphology N CHROM NORMAL (NORM C&C)
[2021-12-28 20:32] LABS: Troponin-I HS 15 pg/mL (3.0-78.0)
--- NOTE | 2021-12-28 20:39 | PCM.HP.STD ---
HPI - General General Date of Admission: 12/28/21 Date of Service: 12/28/21 Chief Complaint: Chest pain. HPI Narrative The patient is a 51 y/o M w/ PMHx: Obesity, Hx VTE w/ Clotting disorder of unclear type, HTN, HLD, PAF, Diabetes mellitus type II, JOEL who presents to the [facility] ED on 12/28/21 with history of onset chest discomfort into the left chest specifically described as a burning and sharp in nature worsened by exertion and improved by rest with associated nausea, diaphoresis, dyspnea, nonproductive cough as well as lightheadedness and palpitations with no associated fevers or chills reportedly coming on gradually however now its been constant and he describes his heart is racing prompting eventual ED evaluation per primary care physician referral as significant tachycardia noted in office. That he is primarily had onset of palpitation and chest discomfort issues since onset of left upper extremity as well as neck discomfort starting 2 weeks prior to current presentation with initial onset while he was down working with issues with a sudden strain/pull in his neck and since then significant shooting pains down his left upper extremity keeping him from even sleeping with recent PCP evaluation with planned steroid start at that time however at the office he had significant racing heart prompting transition to the ED and he did not start this medication work-up in the ED included T96.9, heart rate initially 146 with most recent repeat 124, BP 143/91, respiratory rate 22, 97% on room air, CBC with WC 18.8, hemoglobin 19.5, MCV 80, platelet 491 with left shift, coags with PT 30.3, INR 2.9, PTT 40.7, D-dimer less than 0.27, CMP with sodium 134, carbon oxide 20, BUN/creatinine 23/1.36, glucose 197, calcium 11.8, hepatic profile unremarkable, troponin 9, chest x-ray with degenerative changes with no acute cardiopulmonary findings, rapid COVID antigen and influenza negative, EKG appearance of sinus tachycardia with nonspecific ST changes with no acute evidence of ischemia versus atrial flutter with 2:1 block initially. In the ED patient ministered normal saline bolus, morphine 4 mg IV x1 as well as diltiazem 25 mg IV bolus x1-->repeat EKG with atrial fibrillation following cardizem bolus. [facility] Medical History Blood clotting disorder Hyperlipidemia Incomplete right bundle branch block New onset atrial fibrillation (04/13/17) Obesity, morbid, BMI 40.0-49.9 Pulmonary embolism (2010) Right leg DVT (2010) Type 2 diabetes mellitus without complications Vitamin D deficiency Home Medications atorvastatin 20 mg tablet 20 mg PO QHS 04/13/17 [History Last Taken Unknown] cholecalciferol (vitamin D3) 50 mcg (2,000 unit) capsule 2,000 unit PO DAILY 04/13/17 [History Last Taken Unknown] insulin lispro 100 unit/mL subcutaneous pen 15 unit SQ TID 04/13/17 [History Last Taken Unknown] metformin 1,000 mg tablet 1,000 mg PO BIDCM 04/13/17 [History Last Taken Unknown] insulin glargine U-300 conc 300 unit/mL (3 mL) subcutaneous pen (Toujeo Max U-300 SoloStar) 55 unit subcut QHS 05/14/18 [History Last Taken Unknown] empagliflozin 10 mg tablet (Jardiance) 10 mg PO DAILY 01/04/19 [History Last Taken Unknown] semaglutide 0.25 mg or 0.5 mg (2 mg/1.5 mL) subcutaneous pen injector (Ozempic) 0.5 mg subcut QWEEK 01/04/19 [History Last Taken Unknown] warfarin 4 mg tablet 4 mg PO DAILY 08/16/19 [History Last Taken Unknown] warfarin 5 mg tablet 5 mg PO DAILY 08/16/19 [History Last Taken Unknown] flecainide 100 mg tablet 100 mg PO Q12H #180 tabs 03/17/21 [Rx Last Taken Unknown] diltiazem HCl 240 mg capsule,extended release 24 hr 240 mg PO QDAY #90 caps 03/25/21 [Rx Last Taken Unknown] lisinopril 10 mg tablet 10 mg PO DAILY #90 tabs 08/09/21 [Rx Last Taken Unknown] prednisone 20 mg tablet 20 mg PO DAILY 12/28/21 [History Last Taken Unknown] Allergy/AdvReac Type Severity Reaction Status Date / Time No Known Allergies Allergy Verified 06/24/21 15:52 Family History Father Hypertension Hyperlipidemia Mother blood clots Uncle CAD (coronary artery disease) [place] Uncle CAD (coronary artery disease) [place] Surgical History History of appendectomy History of cardioversion (04/13/17) History of tooth extraction Social History Smoking Status: Never smoker second hand exposure: No alcohol intake: never substance use type: does not use caffeine: Yes Type: coffee Number of servings: 2 what type of physical activity do you participate in: none ROS ROS Narrative Admission Review of Systems: CONSTITUTIONAL: No weight loss, fever, chills, + weakness or fatigue. HEENT: Eyes: No visual loss, blurred vision, double vision or yellow sclerae. Ears, Nose, Throat: No hearing loss, sneezing, congestion, runny nose or sore throat. SKIN: No rash or itching, lesions, wounds. CARDIOVASCULAR: + chest pain, chest pressure or chest discomfort, palpitations, No edema, orthopnea, syncopal events. RESPIRATORY: + shortness of breath, cough without marked sputum, No wheezing, hemoptysis. GASTROINTESTINAL:+ anorexia, nausea without vomiting, No diarrhea, abdominal pain, melena, BRBPR. GENITOURINARY: No dysuria, frequency, urgency or retention. NEUROLOGICAL: + LUE radicular pain. No headache, dizziness, syncope, paralysis, ataxia, focal weakness, change in bowel or bladder control, seizure. MUSCULOSKELETAL: + muscle, back pain, joint pain or stiffness. HEMATOLOGIC: + anemia, bleeding or bruising. LYMPHATICS: No enlarged nodes. No history of splenectomy. PSYCHIATRIC: No history of depression or anxiety. ENDOCRINOLOGIC: + reports of sweating, No cold or heat intolerance. No polyuria or polydipsia. ALLERGIES: No history of asthma, hives, eczema or rhinitis. Vital Signs Vital Signs Vital Signs: 12/28/21 17:00 12/28/21 17:41 12/28/21 17:44 Temperature 96.9 F L Temperature Source Temporal Pulse Rate 146 H 117 H 101 H Respiratory Rate 22 H 20 H Blood Pressure 143/91 H 161/93 H Blood Pressure Mean 108 115 Pulse Ox 97 94 Oxygen Delivery Method Room Air Room Air 12/28/21 17:52 12/28/21 18:13 12/28/21 18:47 Temperature Temperature Source Pulse Rate 107 H 97 108 H Respiratory Rate Blood Pressure Blood Pressure Mean Pulse Ox Oxygen Delivery Method 12/28/21 18:58 12/28/21 19:00 12/28/21 20:22 Temperature Temperature Source Pulse Rate 95 124 H 104 H Respiratory Rate 20 H 17 Blood Pressure 146/100 H 134/75 H Blood Pressure Mean 115 94 Pulse Ox 95 93 Oxygen Delivery Method Room Air Room Air Weight Weight: 254 lb Body Mass Index (BMI) 37.5 Physical Exam Narrative Physical Examination: General: Awake, alert, oriented x 3 and cooperative, seated upright in the ED bed, notes no chest discomfort but still some palpitations especially with rate increase and ongoing left upper extremity radicular pain Skin: Normal color, normal turgor, no icterus, no cyanosis except bilateral lower extremity right greater than left venous stasis skin changes. HEENT: AT/NC, EOMI, PERRLA, MMM, no carotid bruits or JVD noted; however, thickened neck makes evaluation difficult. Lungs: Mildly diminished, greater is, appropriate effort, no rales, ronchi or wheezing. Heart: Irregular irregular; no gallop, rub audible. Abdomen: Soft, obese, NTTP, ND, mildly hyperactive BS, no HSM. Extremities: No cyanosis, no clubbing, mild ankle not markedly pitting edema, see skin. Neurological: Patient awake, alert, oriented as noted, cognitive function intact; pupils equally reactive to light and accommodation, cranial nerves II-XII grossly normal, moving all 4 extremities, no focal deficits, strength moderately global decrease secondary to complaints Psychiatric: Affect appears fatigued, uncomfortable, no acute evidence of depressive or anxiety feelings. Results Lab / Micro Data Result Diagrams: 12/28/21 17:10 12/28/21 17:10 Labs: Laboratory Results - last 24 hr 12/28/21 17:10: WBC 18.8 H, RBC 7.24 H, Hgb 19.5 H*, Hct 57.9 H, MCV 80.0, MCH 26.9 L, MCHC 33.7, RDW Std Deviation 43.1, RDW Coeff of Ken 17.1 H, Plt Count 491 H, MPV 10.0, Immature Gran % (Auto) 0.600, Neut % (Auto) 67.9, Lymph % (Auto) 21.4, Stephens % (Auto) 8.6, Eos % (Auto) 0.8, Baso % (Auto) 0.7, Absolute Neuts (auto) 12.7 H, Absolute Lymphs (auto) 4.02, Nucleated RBC % 0, Differential Comment SEE COMMENT, Diff Path Review May foll, Platelet Estimate SLT INC, RBC Morphology N CHROM, Anisocytosis RARE, Microcytosis RARE 12/28/21 17:10: PT 30.3 H, INR 2.9, APTT 40.4 H, D-Dimer Quant (PE/DVT) < 0.27 L 12/28/21 17:10: Sodium 134 L, Potassium 4.2, Chloride 100, Carbon Dioxide 20.0 L, Anion Gap 14, BUN 23 H, Creatinine 1.36 H, Estim Creat Clear Calc 63.54, Est GFR (MDRD) Af Amer 71, Est GFR (MDRD) Non-Af 58 L, BUN/Creatinine Ratio 16.9, Glucose 197 H, Calcium 11.8 H, Total Bilirubin 0.80, AST 23, ALT 55, Alkaline Phosphatase 82, Troponin I High Sens 9, Total Protein 7.7, Albumin 4.2, Globulin 3.5, Albumin/Globulin Ratio 1.2 12/28/21 20:02: Troponin I High Sens 15 Micro: Microbiology 12/28/21 18:07 Nasal Secretion SARS-CoV-2 & FLU Antigen (Rapid) - Final Radiology Impression Chest X-Ray 12/28/21 18:31 IMPRESSION: Degenerative changes, as described above. No demonstrated acute cardiopulmonary process. Electronically Signed: Farrukh Owusu MD at 19:03 EST , Assessment & Plan Assessment/Plan (1) Atrial fibrillation with rapid ventricular response: PLAN: Plan The patient is a 51 y/o M w/ PMHx: Obesity, Hx VTE w/ Clotting disorder of unclear type, HTN, HLD, PAF, Diabetes mellitus type II, JOEL who presents to the [facility] ED on 12/28/21 with history of onset chest discomfort into the left chest specifically described as a burning and sharp in nature worsened by exertion and improved by rest with associated nausea, diaphoresis, dyspnea, nonproductive cough as well as lightheadedness and palpitations with no associated fevers or chills reportedly coming on gradually however now its been constant and he describes his heart is racing prompting eventual ED evaluation per primary care physician referral as significant tachycardia noted in office. #1. Chest Pain suspected secondary to acute atrial fibrillation with RVR: EKG in ED with sinus tachycardia with nonspecific ST changes versus atrial flutter with 2:1 initially, repeat EKG with atrial fibrillation with rate 115, CXR w/ no acute cardiopulmonary findings with degenerative change, initial trop 9. Will admit to PCU, place on a monitored bed to assure no acute myocardial infarction with serial cardiac enzymes and EKGs, echocardiogram noted 01/23/2019 with EF 65%, stage I diastolic dysfunction, mildly dilated RV, no appreciable change since prior 06/16/2017 echo but given timeline will request repeat. TSH pending, magnesium level requested. Continue coumadin with INR trending. Patient with increase of his rate upon ED evaluation again into the 130s to 140s therefore discussed plan for initiation of Cardizem drip. Pending re-evaluation with rate control may need to also consider stress testing with last 2019. FLP in AM. ASA, NG, morphine. #2. Leukocytosis with left shift: Admission CBC with WC 18.8 with left shift, afebrile upon presentation, unclear etiology, procalcitonin requested, as well as ESR and CRP especially given #3, awaiting CT cervical spine also has noted. As noted #3 do plan to initiate Medrol Dosepak as this would affect his counts further. #3. Left upper extremity radiculopathy with cervical strain, possible injury: We will obtain CT cervical spine to be cautious, placed on Medrol Dosepak, place on low-dose tizanidine as well as low-dose gabapentin and pending CT imaging may require consultation with orthospine/neurosurgery. #4. Polycythemia, unclear etiology: Patient admission with hemoglobin 19.5, no history of tobacco use per record, will continue to trend CBC and further investigate pending these results. #5. History of VTE with clotting disorder: Status post DVT, PE, continue Coumadin with INR trending. #6. Hypertension: Holding home Cardizem with IV drip usage, transition back once appropriate, PRN hydralazine. #7. Hyperlipidemia: Continue home statin regimen. AM FLP. #8. Diabetes mellitus type II: Hold oral home regimen, continue home insulin regimen, ADA diet, accu checks w/ ISS. #9. Obesity: Weight loss and lifestyle changes encouraged. #10. JOEL: CPAP nightly. #11. DVT prophylaxis: SCDs, continue Coumadin with INR trending. Charges/Coding Visit Charges Inpatient E&M: 88760 Init Hosp L3
[2021-12-28 22:05] LABS: CRP 5.76 mg/L (0.0-3.0); Magnesium 2.2 mg/dL (1.6-2.6)
[2021-12-28 22:19] LABS: Erythrocyte Sedimentation Rate 11 mm/hr (0-20)
--- NOTE | 2021-12-28 22:19 | CT_ITS ---
STUDY: CT CERVICAL SPINE WITHOUT CONTRAST REASON FOR EXAM: Male, 51 years old. Radiculopathy UE RADIATION DOSAGE (If Supplied By Facility): CTDIvol = ( 27.86 ) mGy, DLP = ( 638.46 ) mGycm TECHNIQUE: High resolution transaxial imaging was performed without contrast material. Sagittal and coronal images were reconstructed. Individualized dose optimization techniques were used for this CT. COMPARISON: None FINDINGS: Normal craniovertebral junction. Normal anterior atlantoaxial articulation. Normal odontoid process. There is reversal of the normal cervical lordosis. There is no acute fracture. Normal vertebral bodies and posterior osseous elements. C2-3: Normal endplates. Normal disc height and morphology. Normal central canal and intervertebral neuroforamina. C3-4: Mild spurring to the left. Normal central canal and intervertebral neuroforamina. C4-5: Mild spurring. Normal central canal and intervertebral neuroforamina. C5-6: Spurring to the right. Normal central canal and intervertebral neuroforamina. C6-7: Spurring on the right more than the left. Mild canal stenosis. Right greater than left foraminal narrowing. C7-T1: Normal endplates. Normal disc height and morphology. Normal central canal and intervertebral neuroforamina. Normal visualized soft tissue structures. There are atherosclerotic calcifications. CT/Spine Cervical without Contras IMPRESSION: Multilevel degenerative changes, as described above. Electronically Signed: Farrukh Owusu MD at 23:48 EST ,
[2021-12-28 22:21] LABS: Procalcitonin 0.12 ng/mL (0.00-0.09)
[2021-12-28] MEDS: 0.9% Saline Lock 10 ML Syringe IV (23:01)
[2021-12-28] MEDS: MethylPREDNISolone DosePak 4 MG BOX PO (23:38)
[2021-12-28] MEDS: Atorvastatin Calcium 20 MG Tablet PO (23:39)
[2021-12-28] MEDS: Flecainide 100 MG Tablet PO (23:39)
[2021-12-28] MEDS: tiZANidine HCl 2 MG Tablet PO (23:39)
[2021-12-28] MEDS: Insulin Glargine-YFGN 100 UNIT/ML Pen 55 UNIT SC (23:41)
[2021-12-28] MEDS: 0.9% Normal Saline 1,000 ML 100 ML IV (23:43)
[2021-12-28] MEDS: oxyCODONE 5 MG Tablet PO (23:48)
[2021-12-28] MEDS: Temazepam 15 MG Capsule PO (23:48)
[2021-12-28] MEDS: Mag Hydrox/Al Hydrox/Simeth 30 ML UDC PO (23:48)
[2021-12-29] VITALS (22 sets, daily range): BP systolic 113–152; BP diastolic 63–111; PULSE 81–100; RESP 18–28; TEMP 36.7–36.9; O2SAT 88–100
[2021-12-29 00:05] LABS: Bedside Glucose 147 mg/dL (74-106)
[2021-12-29 00:24] LABS: Troponin-I HS 16 pg/mL (3.0-78.0)
[2021-12-29 05:26] LABS: Absolute Lymphocyte Count 1.09 X10^3/uL (0.83-4.51); Absolute Neutrophil Count 11.9 X10^3/uL (2.0-7.7); Basophil# 0.04 X10^3/uL; Basophil% 0.3 % (0-1); Eosinophil# 0.01 X10^3/uL; Eosinophils% 0.1 % (0-5); Lymphocyte # 1.09 X10^3/ul (0.83-4.51); Lymphocyte % 8.1 % (19-41); Mean Corp Hgb Conc 33.3 g/dL (32-36); Mean Corpuscular Hgb 26.8 pg (27.0-32.0); Mean Corpuscular Volume 80.3 fL (80-94); Mean Platelet Vol. 9.8 fl (6.2-12.0); Monocyte# 0.29 X10^3/uL; Monocyte% 2.2 % (0-10); NRBC Flagged by Analyzer 0 % (0-5); Neutrophil % 88.6 % (47-70); Platelet Count 348 K/mm3 (150-450); RBC Distribution Width CV 15.9 % (11.6-14.6); RBC Distribution Width SD 43.8 fl (35.1-43.9); Red Blood Count 6.35 M/mm3 (4.6-6.2); White Blood Count 13.4 K/mm3 (4.4-11.0)
[2021-12-29 05:41] LABS: International Normalized Ratio 2.8
--- NOTE | 2021-12-29 05:55 | ECHOD_ITS ---
Reason For Study: PAF Procedure This was a 2D Doppler, Color Flow transthoracic echocardiogram. Exam performed portable in patient room. Left Ventricle Normal LV size. Left ventricular systolic function is normal. The estimated ejection fraction is 60 %. Stage 1 diastolic dysfunction. No regional wall motion abnormalities noted. Right Ventricle Normal RV size. Normal systolic function. Atria Normal left atrium. Normal right atrium. Mitral Valve Normal mitral valve. Tricuspid Valve Normal tricuspid valve. Aortic Valve Trisinus/trileaflet aortic valve. Mild focal aortic valve calcification. Pulmonic Valve Normal pulmonic valve. Great Vessels Normal aortic root. The pulmonary artery is normal size. Normal inferior vena cava. Pericardium/Pleural No pericardial effusion. MMode/2D Measurements & Calculations LVIDd: 4.2 cm IVSd: 1.1 cm LVOT diam: 2.2 cm LVIDs: 2.5 cm LVPWd: 1.2 cm LVOT area: 4.0 cm2 RVDd: 3.4 cm FS: 39.2 % Ao root diam: 2.6 cm LAV(MOD-bp): 47.9 ml LVAd ap4: 28.0 cm2 LAV(MOD-bp) Indexed: 21.1 ml/m2 LVLd ap4: 8.2 cm LAV(MOD-sp2): 42.4 ml EDV(MOD-sp4): 81.4 ml LAV(MOD-sp4): 40.5 ml EDV(sp4-el): 81.2 ml LVAs ap4: 12.1 cm2 LVLs ap4: 6.4 cm ESV(MOD-sp4): 19.0 ml ESV(sp4-el): 19.2 ml EF(MOD-sp4): 76.7 % EF(sp4-el): 76.4 % LVAd ap2: 22.6 cm2 SV(MOD-sp4): 62.4 ml SV(MOD-sp2): 36.8 ml LVLd ap2: 8.0 cm EDV(MOD-sp2): 53.6 ml EDV(sp2-el): 54.3 ml LVAs ap2: 11.4 cm2 LVLs ap2: 6.7 cm ESV(MOD-sp2): 16.8 ml ESV(sp2-el): 16.6 ml EF(MOD-sp2): 68.7 % SV(sp4-el): 62.0 ml LA dimension(2D): 4.2 cm LA A4 area: 14.4 cm2 RA A4 area: 11.0 cm2 Doppler Measurements & Calculations MV E max clarke: 77.0 cm/sec Lat Peak E' Clarke: 8.2 cm/sec Med Peak E' Clarke: 5.6 cm/sec MV A max clarke: 87.5 cm/sec E/E' lat: 9.3 E/E' med: 13.8 MV E/A: 0.88 Ao V2 max: 210.1 cm/sec LV V1 max: 128.9 cm/sec SV(LVOT): 93.6 ml Ao max P.7 mmHg LV V1 max P.6 mmHg Ao V2 mean: 135.8 cm/sec LV V1 mean P.5 mmHg Ao mean P.6 mmHg LV V1 mean: 87.9 cm/sec Ao V2 VTI: 32.3 cm LV V1 VTI: 23.6 cm DARLING(I,D): 2.9 cm2 DARLING(V,D): 2.4 cm2 PA V2 max: 119.4 cm/sec ECHO/Echo Complete Interpretation Summary Normal LV size. Left ventricular systolic function is normal. The estimated ejection fraction is 60 %. Mild focal aortic valve calcification. Stage 1 diastolic dysfunction. Ordering Physician: Arcelia Dennison Referring Physician: Kolby Fraga Performed By: Miya Maldonado, JAE, RVT
[2021-12-29 06:04] LABS: ALB/GLOB Ratio 1.1 RATIO (0.9-2.4); AST(SGOT) 17 U/L (15-37); Alanine Aminotransfer ALT/SGPT 43 U/L (16-61); Albumin, Serum 3.4 g/dL (3.2-5.0); Alkaline Phosphatase 66 U/L (45-117); Anion Gap 9 (5-15); BUN 20 mg/dL (7-18); Calcium,Total 8.5 mg/dL (8.5-10.1); Chloride 104 mmol/L (98-107); Cholesterol 81 mg/dL (200); Creatinine, Serum 0.87 mg/dL (0.70-1.30); EST Glomerular Filtration Rate 98 mL/min (>60); Est Glom Filt Rate - Afr Amer 119 mL/min (>60); Estimated Creatinine Clearance 99.32 ml/min; Globulin 3.1 g/dL (2.2-4.2); Glucose 144 mg/dL (74-106); High Density Lipoprotein 26 mg/dL; Potassium 4.4 mmol/L (3.5-5.1); Protein, Total 6.5 g/dL (6.4-8.2); Sodium Level 135 mmol/L (136-145); Thyroid Stim Hormone (TSH) 0.72 uIU/mL (0.358-3.74); Triglycerides 73 mg/dL; Very Low Density Lipoprotein 15 mg/dL (5-40)
[2021-12-29] MEDS: oxyCODONE 5 MG Tablet PO ×2 (07:00→13:32)
[2021-12-29] MEDS: MethylPREDNISolone DosePak 4 MG BOX PO ×2 (09:03→12:07)
[2021-12-29] MEDS: Lisinopril 10 MG Tablet PO (09:05)
[2021-12-29] MEDS: Flecainide 100 MG Tablet PO (09:05)
[2021-12-29] MEDS: Gabapentin 100 MG Capsule PO ×2 (09:07→12:09)
--- NOTE | 2021-12-29 11:20 | CASEMGMT ---
RN CM Face to Face with patient for initial transition planning/care coordination assessment. RN CM introduced self and role at [facility]. Patient lying in bed, alert and oriented, at bedside. Patient willing to participate in assessment and is able to answer all questions appropriately. Care providers, pharmacy, and demographics verified. Patient wishes to discharge home, denies need for home health at this time. Patient states he has no further needs or concerns at this time. CM to follow for discharge planning needs that may arise. PCP: [place] Specialists: Debbie interpreter deaf; Magda Stewart Manager Hospitality [facility]erred [facility]acy[facility] Insurance: MM Prescription Benefit: yes Living Will/HPOA: none LNOK: Living Arrangements: Patient lives with in a single story home with 2-3 steps to enter. Patient states he is independent at home. Transportation: self, DME/HHC: Patient has cpap and glucometer with supplies at home. No previous HHC. Disposition Plan: Patient to discharge home with family support and follow-up plans in place. Gloria CADE, RN, CM
[2021-12-29] MEDS: FLU VACC QS2022-23(6MOS UP)/PF 60 MCG/0.5 ML SYRINGE IM (11:21)
[2021-12-29] MEDS: dilTIAZem CD 300 MG Capsule PO (12:06)
--- NOTE | 2021-12-29 15:49 | DCINST_ITS ---
Discharge Instructions Diet Discharge Diet: 1800 Calorie Control Diet Activity Discharge Activity: Return to Normal Activity Weight Bearing Status: Full weight bearing Follow Up Care Test Results: Test results from this visit will be discussed in further detail at your follow- up appointment, if applicable. Discharge Plan Admission Admit Date/Time: 12/28/21 20:47 Primary Reason for Your Visit: a-fib with RVR Attending Provider: Miguel Samuel Primary Care Provider: Kolby Fraga Consulting Providers: Arcelia Dennison Discharge Orders/Prescriptions Prescriptions: New flecainide 50 mg tablet 50 mg PO BID Qty: 60 0RF Rx Instructions: add to existing 100 mg bid dose Continued Toujeo Max U-300 SoloStar 300 unit/mL (3 mL) insulin pen 55 unit SC QHS warfarin 4 mg tablet 4 mg PO DAILY Label Comments: current dose 9 mg daily managed by Dr. Fraga warfarin 5 mg tablet 5 mg PO DAILY Label Comments: current dose 9 mg daily managed by Dr. Fraga Ozempic 0.25 mg or 0.5 mg(2 mg/1.5 mL) pen injector 0.5 mg SC QWEEK Jardiance 10 mg tablet 10 mg PO DAILY atorvastatin 20 MG tablet 20 mg PO QHS metformin 1,000 MG tablet 1,000 mg PO BIDCM insulin lispro 100 UNIT/ML insulin pen 15 unit SQ TID cholecalciferol (vitamin D3) 2,000 UNIT capsule 2,000 unit PO DAILY prednisone 20 mg tablet 20 mg PO DAILY diltiazem HCl 240 mg capsule,extended release 24hr 240 mg PO QDAY Qty: 90 3RF lisinopril 10 mg tablet 10 mg PO DAILY Qty: 90 3RF Discontinued flecainide 100 mg tablet 100 mg PO Q12H Qty: 180 3RF Referrals / Follow Up: Presley Lewis MD [Med Staff - Active Staff] - Within 1 Month Kolby Fraga MD [Primary Care Provider] - Disposition Disposition (needs filled in before D/C Order can be placed): Home, Self Care
--- NOTE | 2021-12-29 15:55 | DS.PCM_ITS ---
Providers Date of Admission: 12/28/21 Date of Discharge: 12/29/21 Primary Care Physician: Dr. Kolby Fraga MD Reason For Visit: PAF WITH RVR, CHEST PAIN Diagnosis Discharge Diagnosis (1) Atrial fibrillation with rapid ventricular response: Status: Acute Code(s): I48.91 - Unspecified atrial fibrillation Plan 1. Paroxysmal atrial fibrillation with RVR #2 essential hypertension #3 hyperlipidemia #4 type 2 diabetes #5 long-term use of anticoagulants due to inherent clotting disorder #6 clotting disorder-type unknown Medications at Discharge Home Medications atorvastatin 20 mg tablet 20 mg PO QHS 04/13/17 cholecalciferol (vitamin D3) 50 mcg (2,000 unit) capsule 2,000 unit PO DAILY 04/13/17 insulin lispro 100 unit/mL subcutaneous pen 15 unit SQ TID 04/13/17 metformin 1,000 mg tablet 1,000 mg PO BIDCM 04/13/17 insulin glargine U-300 conc 300 unit/mL (3 mL) subcutaneous pen (Toujeo Max U- 300 SoloStar) 55 unit subcut QHS 05/14/18 empagliflozin 10 mg tablet (Jardiance) 10 mg PO DAILY 01/04/19 semaglutide 0.25 mg or 0.5 mg (2 mg/1.5 mL) subcutaneous pen injector (Ozempic) 0.5 mg subcut QWEEK 01/04/19 warfarin 4 mg tablet 4 mg PO DAILY 08/16/19 warfarin 5 mg tablet 5 mg PO DAILY 08/16/19 diltiazem HCl 240 mg capsule,extended release 24 hr 240 mg PO QDAY #90 caps 03/25/21 lisinopril 10 mg tablet 10 mg PO DAILY #90 tabs 08/09/21 prednisone 20 mg tablet 20 mg PO DAILY 12/28/21 flecainide 50 mg tablet 50 mg PO BID #60 tabs 12/29/21 Hospital Course Operations None Procedures None Summary of Care Provided Minutes Spent on Discharge: 31 Hospital Course: This 51-year-old white male was seen in the emergency room at [facility] and onset of chest discomfort into his left chest area, EKG was obtained and it was noted that the patient was in atrial fibrillation with RVR, patient was already on anticoagulation due to a history of a clotting disorder, Cardizem drip was initiated and the patient was admitted to PCU, cardiac enzymes did not indicate a non-STEMI, patient converted to normal sinus rhythm. I informally talked with the patient's tile finisher by phone who recommended increasing the patient's flecainide dosage to 150 mg twice daily. On 12/29/2021, patient was seen and examined: On examination he appeared in good health and spirits. Vital signs as documented. Skin warm and dry and without overt rashes. Neck without JVD, neck was supple, trachea midline, thyroid was normal. Lungs clear bilaterally, normal air movement was noted. Heart exam notable for regular rhythm, normal sounds and absence of murmurs, rubs or gallops. Abdomen unremarkable and without evidence of organomegaly, masses, or abdominal aortic enlargement. Bowel sounds are present, abdomen is not distended. Extremities nonedematous, no cyanosis was noted, no clubbing was noted. Neuro: Cranial nerves II through XII are grossly intact, no focal motor deficits were noted, sensation to light touch and pinprick intact, motor exam 5/5 throughout. Psych: Patient is alert and oriented x3, he does not appear anxious or depressed, he does not appear agitated. Patient was discharged home in stable condition on 12/29/2021. Weight / BMI Weight Weight: 113 kg Body Mass Index (BMI) 37.0 ABG / Lab / Microbiology Data Result Diagrams: 12/29/21 04:31 12/29/21 04:31 Laboratory: Laboratory Results - last 24 hr 12/28/21 17:10: WBC 18.8 H, RBC 7.24 H, Hgb 19.5 H*, Hct 57.9 H, MCV 80.0, MCH 26.9 L, MCHC 33.7, RDW Std Deviation 43.1, RDW Coeff of Ken 17.1 H, Plt Count 491 H, MPV 10.0, Immature Gran % (Auto) 0.600, Neut % (Auto) 67.9, Lymph % (Auto) 21.4, [place] % (Auto) 8.6, Eos % (Auto) 0.8, Baso % (Auto) 0.7, Absolute Neuts (auto) 12.7 H, Absolute Lymphs (auto) 4.02, Nucleated RBC % 0, Differential Comment SEE COMMENT, Diff Path Review May anjana, Platelet Estimate SLT INC, RBC Morphology N CHROM, Anisocytosis RARE, Microcytosis RARE 12/28/21 17:10: PT 30.3 H, INR 2.9, APTT 40.4 H, D-Dimer Quant (PE/DVT) < 0.27 L 12/28/21 17:10: Sodium 134 L, Potassium 4.2, Chloride 100, Carbon Dioxide 20.0 L , Anion Gap 14, BUN 23 H, Creatinine 1.36 H, Estim Creat Clear Calc 63.54, Est GFR (MDRD) Af Amer 71, Est GFR (MDRD) Non-Af 58 L, BUN/Creatinine Ratio 16.9, Glucose 197 H, Calcium 11.8 H, Total Bilirubin 0.80, AST 23, ALT 55, Alkaline Phosphatase 82, Troponin I High Sens 9, Total Protein 7.7, Albumin 4.2, Globulin 3.5, Albumin/Globulin Ratio 1.2 12/28/21 17:10: ESR 11 12/28/21 17:10: Magnesium 2.2, C-React Prot Ext Range 5.76 H 12/28/21 20:02: Troponin I High Sens 15 12/28/21 21:53: Procalcitonin 0.12 H 12/28/21 22:45: COVID-19 ([facility]) Not Detected 12/28/21 23:36: POC Glucose 147 H 12/28/21 23:55: Troponin I High Sens 16 12/29/21 04:31: WBC 13.4 H, RBC 6.35 H, Hgb 17.0 H, Hct 51.0, MCV 80.3, MCH 26.8 L, MCHC 33.3, RDW Std Deviation 43.8, RDW Coeff of Ken 15.9 H, Plt Count 348, MPV 9.8, Immature Gran % (Auto) 0.700, Neut % (Auto) 88.6 H, Lymph % (Auto) 8.1 L, [place] % (Auto) 2.2, Eos % (Auto) 0.1, Baso % (Auto) 0.3, Absolute Neuts (auto) 11.9 H, Absolute Lymphs (auto) 1.09, Nucleated RBC % 0 12/29/21 04:31: PT 29.0 H, INR 2.8 12/29/21 04:31: Sodium 135 L, Potassium 4.4, Chloride 104, Carbon Dioxide 22.0, Anion Gap 9, BUN 20 H, Creatinine 0.87, Estim Creat Clear Calc 99.32, Est GFR (MDRD) Af Amer 119, Est GFR (MDRD) Non-Af 98, BUN/Creatinine Ratio 23.0 H, Glucose 144 H, Calcium 8.5, Total Bilirubin 0.60, AST 17, ALT 43, Alkaline Phosphatase 66, Total Protein 6.5, Albumin 3.4, Globulin 3.1, Albumin/Globulin Ratio 1.1, Triglycerides 73, Cholesterol 81, LDL Cholesterol 40, VLDL Cholesterol 15, HDL Cholesterol 26 L, TSH 0.72 Microbiology: Microbiology 12/28/21 18:07 Nasal Secretion SARS-CoV-2 & FLU Antigen (Rapid) - Final Radiography Diagnostic Testing: Radiology Impression Chest X-Ray 12/28/21 18:31 IMPRESSION: Degenerative changes, as described above. No demonstrated acute cardiopulmonary process. Electronically Signed: Farrukh Owusu MD at 19:03 EST , Cervical Spine CT 12/28/21 22:19 IMPRESSION: Multilevel degenerative changes, as described above. Electronically Signed: Farrukh Owusu MD at 23:48 EST , Echocardiogram 12/29/21 05:55 Interpretation Summary Normal LV size. Left ventricular systolic function is normal. The estimated ejection fraction is 60 %. Mild focal aortic valve calcification. Stage 1 diastolic dysfunction. Ordering Physician: Arcelia Dennison Referring Physician: Kolby Fraga Performed By: Miya Maldonado, RDCS, RVT D/C Instructions Discharge Diet: 1800 Calorie Control Diet Weight Bearing Status: Full weight bearing Meaningful Use Info Meaningful Use Diagnoses (Choose all that apply): None applicable Discharge Plan Admission Admit Date/Time: 12/28/21 20:47 Primary Reason for Your Visit: a-fib with RVR Attending Provider: Miguel Samuel Primary Care Provider: Kolby Fraga Consulting Providers: Arcelia Dennison Discharge Orders/Prescriptions Prescriptions: New flecainide 50 mg tablet 50 mg PO BID Qty: 60 0RF Rx Instructions: add to existing 100 mg bid dose Continued Toujeo Max U-300 SoloStar 300 unit/mL (3 mL) insulin pen 55 unit SC QHS warfarin 4 mg tablet 4 mg PO DAILY Label Comments: current dose 9 mg daily managed by Dr. Fraga warfarin 5 mg tablet 5 mg PO DAILY Label Comments: current dose 9 mg daily managed by Dr. Fraga Ozempic 0.25 mg or 0.5 mg(2 mg/1.5 mL) pen injector 0.5 mg SC QWEEK Jardiance 10 mg tablet 10 mg PO DAILY atorvastatin 20 MG tablet 20 mg PO QHS metformin 1,000 MG tablet 1,000 mg PO BIDCM insulin lispro 100 UNIT/ML insulin pen 15 unit SQ TID cholecalciferol (vitamin D3) 2,000 UNIT capsule 2,000 unit PO DAILY prednisone 20 mg tablet 20 mg PO DAILY diltiazem HCl 240 mg capsule,extended release 24hr 240 mg PO QDAY Qty: 90 3RF lisinopril 10 mg tablet 10 mg PO DAILY Qty: 90 3RF Discontinued flecainide 100 mg tablet 100 mg PO Q12H Qty: 180 3RF Referrals / Follow Up: Presley Lewis MD [Med Staff - Active Staff] - Within 1 Month Kolby Fraga MD [Primary Care Provider] - Disposition Disposition (needs filled in before D/C Order can be placed): Home, Self Care Charges/Coding Visit Charges Inpatient E&M: 84612 Disch Hosp
[2021-12-30 09:40] LABS: Pathologist Review Reviewed
== END 2021-12-29 16:57 | disposition home or self-care (01) | DRG 309 ==
LOC: ED 21:30 → PCU 21:35
PROVIDERS: Admitting Provider Family Medicine; Emergency Provider Emergency Medicine; PCP Family Medicine; Visit Provider Internal Medicine
DX: I48.0 Paroxysmal atrial fibrillation (principal); D68.9 Coagulation defect, unspecified; E11.9 Type 2 diabetes mellitus without complications; Z79.4 Long term (current) use of insulin; S16.1XXA Strain of muscle, fascia and tendon at neck level, initial encounter; M47.20 Other spondylosis with radiculopathy, site unspecified; G47.33 Obstructive sleep apnea (adult) (pediatric); E78.5 Hyperlipidemia, unspecified; I10 Essential (primary) hypertension; Z79.01 Long term (current) use of anticoagulants; E66.9 Obesity, unspecified; Z68.37 Body mass index [BMI] 37.0-37.9, adult
CPT/HCPCS: 36415; 71045; 72125; 80053; 80061; 82962; 83735; 84145; 84443; 84484; 85025; 85379; 85610; 85652; 85730; 86140; 87428; 87635; 93005; 93306; 94762; 99285; J7030; 90686; A4216; U0003; U0005

== ENCOUNTER → 2023-02-10 | Outpatient (CLI) | payer OTHER, SELFPAY ==
--- NOTE | 2023-02-10 15:04 | STRESSREP ---
Stress Test Report Exercise stress test. 52-year-old man with a history of previous pulmonary embolus Stress protocol: Resting EKG demonstrates normal sinus rhythm with a rate of 72 bpm resting blood pressure is 108/70 mmHg. The patient exercised according to the regular Gene protocol for a total duration of 6 minutes and 30 seconds attaining a maximum heart rate of 148 bpm which was 88% of maximum predicted heart rate; the maximum workload was 8.4 metabolic equivalents. At rest there were no ST or T wave changes noted to suggest ischemia and at peak exercise upsloping ST changes only were noted which did not meet the criteria for ischemia. No clinical angina was noted the test was terminated due to the target heart rate being achieved/fatigue. The peak blood pressure was 150/88 mmHg. Rate-pressure product was 20,500. Conclusion: Stress test with no EKG criteria for ischemia at a moderate workload. No clinical angina noted. No arrhythmias present.
== END | disposition home or self-care (01) ==
PROVIDERS: PCP Family Medicine; Referring Provider Physician Assistant Medical; Visit Provider Physician Assistant Medical
DX: R07.9 Chest pain, unspecified (principal)
CPT/HCPCS: 93017

== ENCOUNTER → 2025-02-18 | Outpatient (CLI) | payer OTHER, SELFPAY | END | disposition home or self-care (01) | LOC: SL 09:24 | PROVIDERS: PCP Family Medicine; Visit Provider Nurse Practitioner Acute Care | DX: Z46.89 Encounter for fitting and adjustment of other specified devices (principal) ==